=== PATIENT | female | born 1960 | race Caucasian/White ===

== ENCOUNTER 2017-05-30 08:24 | Day surgery (SDC) ==
[2017-05-30] MEDS ORDERED: DIPRIVAN 20 ML VIAL IVP ONE (10:54)
[2017-05-30] MEDS ORDERED: VERSED ONE (10:54)
[2017-05-30 12:03] VITALS: BP 138/71; TEMP 98.8
--- NOTE | 2017-05-31 09:50 | OP ---
INDICATIONS FOR PROCEDURE: 56-year-old female presents for screening colonoscopy exam. She incidentally has some constipation. MEDICATIONS: SEE ANESTHESIA NOTES. PROCEDURE: COLONOSCOPY, SNARE POLYPECTOMY, ENDOCLIP THERAPY. REPORT: The risks, benefits, alternatives and limitations were discussed in detail with the patient. Informed consent was obtained. After adequate sedation was achieved, a digital rectal exam revealed good tone, no masses. The colonoscope was introduced into the rectum and advanced under direct visual guidance to the cecum. The cecum was identified by the appendiceal orifice and IC valve. On the IC valve there is a small 5 mm slightly raised polyp that I removed by snare technique. I then noticed in the very proximal ascending colon there was a sessile 10 or 11 mm polyp. I removed this by snare technique. There is a couple drops of blood present thus I chose to close this polypectomy site given its larger size with Endoclip. This polyp tissue was retrieved. The smaller polyp was not retrieved. I then slowly withdrew the scope in a circumferential manner examining the mucosa quite carefully. I looked on the proximal and distal side of folds and flexures as best as possible. I was able to retroflex the scope in the right colon and left colon to increase visualization. I noted no other abnormalities throughout the entire length of the colon including on retroflex view of the anal canal. The prep was good. The withdrawal time was 20 minutes and 10 seconds. The patient tolerated the procedure well with stable vital signs and pulse oximetry throughout. IMPRESSION: 1. TWO (2) POLYPS REMOVED RECOMMENDATIONS: 1. High fiber diet. 2. For constipation, I suggest fiber supplements or adding Miralax. 3. Await colon polyp pathology, if everything is benign I recommend repeat colonoscopy examination again in 3 years given the larger size of the proximal colon polyp. 4. Office visit as needed. CC: DR. THONG HAINES
== END 2017-05-30 12:20 | disposition home or self-care (01) ==
LOC: SURG 08:24
PROVIDERS: ATTEND Internal Medicine Gastroenterology
DX: Z12.11 Encounter for screening for malignant neoplasm of colon (principal); D12.2 Benign neoplasm of ascending colon; K59.00 Constipation, unspecified

== ENCOUNTER 2018-01-24 06:52 | Outpatient (CLI) ==
[2018-01-24] MEDS ORDERED: ATROPINE SULFATE PFS ONE (06:57)
[2018-01-24] MEDS ORDERED: DOBUTAMINE 250 ML IV ONE (06:57)
--- NOTE | 2018-01-24 09:04 | ECHOSTRESS ---
Date of Exam: 01/24/18 Ordering Physician: DR. ERIN BENITO Reason for Echo: CHEST PAIN, DOBUTAMINE STRESS TEST--NO ISCHEMIA M-Mode Normal Adult Results LV Dimensions Normal Adult Results AoV Opening excursions >1.6 LVEDD-base- 3.5-5.8 Ao root dimensions 2.0-3.7 LVESD-base- 3.1-4.6 L. Atrium dimensions 1.9-3.8 Post. Wall thickness 0.8-1.1 IV septum (thickness) 0.7-1.2 Post. Wall excursion 0.72-1.3 Septal motion Systolic motion R. Ventricular cavity 1.5-2.0 LVEF 60% Paradoxical septal wall motion 2-D: NORMAL LEFT VENTRICULAR CONTRACTILITY--RESTING AND WITH DOBUTAMINE INFUSION M-MODE: MV: AV: TV: PV: CHAMBER SIZE: WALL MOTION: NORMAL LEFT VENTRICULAR CONTRACTILITY--RESTING AND WITH DOBUTAMINE INFUSION PERICARDIUM: INTERPRETATION: 1. NORMAL LEFT VENTRICULAR CONTRACTILITY--RESTING AND WITH DOBUTAMINE INFUSION MTDD
--- NOTE | 2018-01-24 09:25 | DOBSTECHO ---
Date of Test: 01/24/18 Ordering Physician: DR. ERIN BENITO Reason for Examination: CHEST PAIN, HYPERTENSION, [place] WITH STENT--2010 Current Medications: BUPROPION, ZOLOFT, XANAX, ZOPIDEM, LISINOPRIL, ATENOLOL, PLAVIX, LIPITOR, SOMA Height: 64" Weight: 224 LBS Target Heart Rate: 136/161 S-T Segment Stage Time HR BPM BP MMHG Rhythm +/- Elevation Depression Comments/ Symptoms Control Sitting 64 136/98 SR X NONE Dobutamine 250mg/D5W 5cmg/KG/mn 10cmg/KG/mn 3:00 77 154/80 SR X NONE 15cmg/KG/mn 2:00 95 SR X NONE 20cmg/KG/mn 2:00 108 152/78 SR X NONE 25cmg/KG/mn 2:00 118 SR X NONE 30cmg/KG/mn 1:32 130 164/68 SR X NONE 35cmg/KG/mn 40cmg/KG/mn Time: 3:00 HR B/P Time: 8:00 HR B/P Time: HR B/P Recovery 100 162/70 Recovery 76 138/62 Recovery Total Time: 10:32 Maximum Heart Rate Reached: 130 BPM 99% OXYGEN SATURATION ON ROOM AIR DURING DOBUTAMINE INFUSION Interpretation: 1. NO EVIDENCE OF ISCHEMIA BY ST-T WAVE CHANGES 2. NO CHEST PAIN OR DISCOMFORT 3. NORMAL LEFT VENTRICULAR CONTRACTILITY--RESTING AND WITH DOBUTAMINE INFUSION MTDD
== END 2018-01-24 06:53 | disposition home or self-care (01) ==
LOC: CAR 06:52
PROVIDERS: ATTEND Internal Medicine
DX: R07.9 Chest pain, unspecified (principal)
CPT/HCPCS: 93005; 93010

== ENCOUNTER 2018-04-13 09:38 | Outpatient (CLI) ==
--- NOTE | 2018-04-13 12:24 | US ---
EXAM: Ultrasound bilateral carotid duplex HISTORY: Dizziness COMPARISON: None TECHNIQUE: Sonographic and color Doppler evaluation of the carotids were performed. FINDINGS: The right carotid is patent in appearance with scattered mild to moderate atherosclerotic plaque visu alized. The right ICA peak systolic velocity measures 120 cm/sec which is normal. The ICA / CCA peak systolic velocity ratio is 2.1 and ICA end-diastolic velocity is 30 cm/sec. The left carotid is patent in appearance with scattered mild to moderate atherosclerotic plaque visua lized. The left ICA peak systolic velocity measures 100 cm/sec which is normal. The left ICA / CCA peak systolic velocity ratio is 1.6 and ICA end-diastolic velocity is 30 cm/sec. Vertebral arteries demonstrate antegrade flow bilaterally. IMPRESSION: Mild to moderate atherosclerotic disease by ultrasound with no elevated velocities or color Doppler a bnormality to suggest hemodynamically significant stenosis.
== END 2018-04-13 09:39 | disposition home or self-care (01) ==
LOC: RAD 09:38
PROVIDERS: ATTEND Internal Medicine
DX: R42 Dizziness and giddiness (principal)

== ENCOUNTER 2019-01-15 13:24 | Inpatient (IN) ==
--- NOTE | 2019-01-15 14:15 | ED.PDOC ---
General ED Provider: Dr. CRAIG MILLER Chief Complaint: Chest Pain Stated Complaint: High Epigastric pain , Recent Fall down 5 step injurying rt shoulder. Patient complains of upper abdominal pain and epigastric pain since last night. Patent stated pain had returned since this morning. Patient stated pain has made her nauseous. Patient stated Dr. Benito told her to come here because of her cardiac history. Patient stated she fell at home down 5 steps 2 days ago. Patient complains of hot flashes. Time Seen by Physician: 14:00 Mode of Arrival: Walk-In Information Source: Patient Exam Limitations: No limitations Primary Care Provider: ERIN BENITO Nursing and Triage Documentation Reviewed and Agree: Yes Does patient meet sepsis criteria?: No System Inflammatory Response Syndrome: Not Applicable Sepsis Protocol: For patient's 13 years and over: Temp is 96.8 and below OR 101 and greater Pulse >90 BPM Resp >20/minute Acutely Altered Mental Status Are patient's symptoms suggestive of a new infection, such as: -Pneumonia -Skin, Soft Tissue -Endocarditis -UTI -Bone, Joint Infection -Implantable Device -Acute Abdominal Infection -Wound Infection -Meningitis -Blood Stream Catheter Infection -Unknown Review of Systems - Review Of Systems Constitutional: Reports: No symptoms Eyes: Reports: No symptoms Ears, Nose, Mouth, Throat: Reports: No symptoms Respiratory: Reports: No symptoms Cardiac: Reports: No symptoms GI: Reports: No symptoms : Reports: No symptoms Musculoskeletal: Reports: No symptoms Skin: Reports: No symptoms Neurological: Reports: No symptoms Endocrine: Reports: No symptoms Hematologic/Lymphatic: Reports: No symptoms All Other Systems: Reviewed and Negative Past Medical History - Past Medical History Previously Healthy: No Endocrine: Reports: None Cardiovascular: Reports: CAD, Hypertension Respiratory: Reports: None Hematological: Reports: None Gastrointestinal: Reports: GERD Genitourinary: Reports: None Neuro/Psych: Reports: None Musculoskeletal: Reports: Back Pain Cancer: Reports: None Last Menstrual Period: several years - Surgical History General Surgical History: Reports: None - Family History Family History: Reports: None - Social History Smoking Status: Never smoker Hx Substance Use: No Alcohol Screening: None - Immunizations Tetanus Shot up to Date: Yes Physical Exam - Physical Exam Appearance: Ill-appearing, Obese Ill-appearing: Moderate Pain Distress: Moderate Eyes: ROSETTA, EOMI, Conjunctiva clear ENT: Ears normal Neck: Supple Respiratory: Airway patent Cardiovascular: RRR, Pulses normal, No rub, No murmur GI/: Soft, Tender (mid epigastrium-no guarding or rebound) Skin: Warm (large area of ecchymoses rt lat upper thoracic region and costal region -from her fall), Dry, Normal color Neurological: Sensation intact, Motor intact, Reflexes intact, Cranial nerves intact, Alert, Oriented Psychiatric: Affect appropriate, Mood appropriate Interpretation - Radiology Interpretation Radiology Interpretation By: Radiologist Exam Interpreted: Portable CXR (WNL), CT Scan (Gastroenteritia) Physician Notification - Case Discussed Physician Notified: Dr Benito- Will admit for continued IV fluids and pain control Time of Notification: 18:30 Critical Care Note - Critical Care Note Total Time (mins): 60 Course - Course Hematology/Chemistry: 01/15/19 14:21 01/15/19 14:21 Orders, Labs, Meds: Lab Review 01/15/19 01/15/19 01/15/19 14:21 14:21 14:21 WBC 9.02 RBC 4.45 Hgb 13.7 Hct 40.2 MCV 90.3 MCH 30.8 MCHC 34.1 RDW Coeff of Elizabeth 12.1 Plt Count 329 Immature Gran % (Auto) 0.2 Neut % (Auto) 61.8 Lymph % (Auto) 27.8 [place] % (Auto) 5.9 Eos % (Auto) 3.3 Baso % (Auto) 1.0 Immature Gran # (Auto) 0.0 Neut # (Auto) 5.6 Lymph # (Auto) 2.5 [place] # (Auto) 0.5 Eos # (Auto) 0.3 Baso # (Auto) 0.1 PT 9.8 INR 0.98 APTT 23.5 L Sodium 138.8 Potassium 3.55 Chloride 98.8 Carbon Dioxide 29.9 Anion Gap 13.65 BUN 11.7 Creatinine 0.81 Estimated GFR (MDRD) 72.00 BUN/Creatinine Ratio 14.44 Glucose 107.0 H Calcium 9.61 Magnesium Total Bilirubin 0.60 AST 33.1 ALT 19.2 Alkaline Phosphatase 85.3 Total Creatine Kinase 71.7 Troponin I < 0.012 NT-Pro-B Natriuret Pep Total Protein 8.12 Albumin 4.83 Globulin 3.29 Albumin/Globulin Ratio 1.46 Amylase Lipase 01/15/19 01/15/19 14:21 16:00 WBC RBC Hgb Hct MCV MCH MCHC RDW Coeff of Elizabeth Plt Count Immature Gran % (Auto) Neut % (Auto) Lymph % (Auto) [place] % (Auto) Eos % (Auto) Baso % (Auto) Immature Gran # (Auto) Neut # (Auto) Lymph # (Auto) [place] # (Auto) Eos # (Auto) Baso # (Auto) PT INR APTT Sodium Potassium Chloride Carbon Dioxide Anion Gap BUN Creatinine Estimated GFR (MDRD) BUN/Creatinine Ratio Glucose Calcium Magnesium 2.43 H Total Bilirubin AST ALT Alkaline Phosphatase Total Creatine Kinase Troponin I NT-Pro-B Natriuret Pep 157.000 H Total Protein Albumin Globulin Albumin/Globulin Ratio Amylase 126.9 H Lipase 375.3 H Orders Category Date Time Status ECHOCARDIOGRAM 2D-M MODE Routine CARDIO 01/15/19 18:31 Ordered EKG-(ED ONLY) Stat CARDIO 01/15/19 14:15 Completed EKG-(IP & OP ONLY) Routine CARDIO 01/15/19 18:32 Ordered ACTIVITY .BR with BRP CARE 01/15/19 18:31 Active INTAKE & OUTPUT Q8HR CARE 01/15/19 18:31 Active NPO REMINDER: IMAGING ONCE CARE 01/15/19 16:53 Active VITAL SIGNS Q4HR CARE 01/15/19 18:31 Active NOTHING BY MOUTH DIETARY 01/15/19 Dinner Ordered AMYLASE Stat LAB 01/15/19 16:00 Completed CBC W/ AUTO DIFF DAILY@0600 LAB 01/16/19 06:00 Ordered CBC W/ AUTO DIFF DAILY@0600 LAB 01/17/19 06:00 Ordered CBC W/ AUTO DIFF Stat LAB 01/15/19 14:21 Completed CMP [COMPREHENSIVE METABOLIC PANEL] Stat LAB 01/15/19 14:21 Completed COMPREHENSIVE METABOLIC PANEL DAILY@0600 LAB 01/16/19 06:00 Ordered COMPREHENSIVE METABOLIC PANEL DAILY@0600 LAB 01/17/19 06:00 Ordered CPK [CREATINE KINASE] Stat LAB 01/15/19 14:21 Completed LIPASE Stat LAB 01/15/19 16:00 Completed MAGNESIUM Stat LAB 01/15/19 16:00 Completed NT-PROBNP Stat LAB 01/15/19 14:21 Completed PARTIAL THROMBOPLASTIN TIME Stat LAB 01/15/19 14:21 Completed PT WITH INR Stat LAB 01/15/19 14:21 Completed TROPONIN I Q8H LAB 01/16/19 00:45 Ordered TROPONIN I Q8H LAB 01/16/19 08:45 Ordered TROPONIN I Stat LAB 01/15/19 14:21 Completed 0.9 % Sodium Chloride [Saline Flush] MEDS 01/15/19 14:15 Active 1 syr IVF PRN PRN Bupropion HCl [Bupropion Xl] MEDS 01/16/19 09:00 Ordered 300 mg PO DAILY Clopidogrel Bisulfate [Plavix] MEDS 01/16/19 09:00 Ordered 75 mg PO DAILY Famotidine Inj [Pepcid] MEDS 01/15/19 15:31 Discontinued 20 mg IVP ONCE STA Ondansetron HCl/Pf [Zofran 4 mg/2 ml] MEDS 01/15/19 15:31 Discontinued 4 mg IVP ONCE STA Pantoprazole Sodium [Protonix IV] MEDS 01/16/19 09:00 Ordered 40 mg IVP DAILY Pantoprazole Sodium [Protonix IV] MEDS 01/15/19 16:58 Discontinued 40 mg IVP ONCE STA Promethazine HCl [Phenergan 25 mg/ml Vial] 25 mg MEDS 01/15/19 18:31 Ordered 0.9 % Sodium Chloride [Sodium Chloride] 100 ml IV Q6H Sertraline HCl [Zoloft] MEDS 01/16/19 09:00 Ordered 100 mg PO DAILY Sodium Chloride 0.9% [Sodium Chloride] 1,000 ml MEDS 01/15/19 16:18 Discontinued IV BOLUS Zolpidem Tartrate [Zolpidem Tartrate ER] MEDS 01/15/19 21:00 Ordered 12.5 mg PO DAILY RESUSCITATION STATUS Routine OTHERS 01/15/19 18:31 Ordered CHEST, 1V AP ONLY Stat RADS 01/15/19 15:[address] ABDOMEN/PELVIS W/WO CONTRAS Stat RADS 01/15/19 16:53 Completed Medications Generic Name Dose Route Start Last Admin Trade Name Freq PRN Reason Stop Dose Admin Clopidogrel Bisulfate 75 mg 01/16/19 09:00 Plavix PO DAILY HANSA Promethazine HCl 25 mg/ Sodium 101 mls @ 200 mls/hr 01/15/19 18:31 Chloride IV Q6H PRN Nausea / Vomiting Non-Formulary Medication 100 mg 01/16/19 09:00 Sertraline Hcl [Zoloft] PO DAILY HANSA Non-Formulary Medication 300 mg 01/16/19 09:00 Bupropion Hcl [Bupropion Xl] PO DAILY HANSA Non-Formulary Medication 12.5 mg 01/15/19 21:00 Zolpidem Tartrate [Zolpidem Tartrate Er] PO DAILY HANSA Pantoprazole Sodium 40 mg 01/16/19 09:00 Protonix Iv IVP DAILY HANSA Sodium Chloride 1 syr 01/15/19 14:15 01/15/19 16:10 Saline Flush IVF 1 syr PRN PRN Administration To flush IV Discontinued Medications Generic Name Dose Route Start Last Admin Trade Name Freq PRN Reason Stop Dose Admin Famotidine 20 mg 01/15/19 15:31 01/15/19 16:09 Pepcid IVP 01/15/19 15:32 20 mg ONCE STA Administration Sodium Chloride 1,000 mls @ 500 mls/hr 01/15/19 16:18 01/15/19 16:24 Sodium Chloride IV 01/15/19 18:17 500 mls/hr BOLUS STA Administration Ondansetron HCl 4 mg 01/15/19 15:31 01/15/19 16:09 Zofran 4 Mg/2 Ml IVP 01/15/19 15:32 4 mg ONCE STA Administration Pantoprazole Sodium 40 mg 01/15/19 16:58 01/15/19 17:40 Protonix Iv IVP 01/15/19 16:59 40 mg ONCE STA Administration Vital Signs: Temp Pulse Resp BP Pulse Ox 01/15/19 13:25 97.9 F 75 20 153/89 H 99 BAYRON Risk Score BAYRON Risk Score: Risk Score Odds of by 30D 0 0.1 (0.1-0.2) 1 0.3 (0.2-0.3) 2 0.4 (0.3-0.5) 3 0.7 (0.6-0.9) 4 1.2 (1.0-1.5) 5 2.2 (1.9-2.6) 6 3.0 (2.5-3.6) 7 4.8 (3.8-6.1) Departure - Departure Time of Disposition: 18:50 Disposition: ADMITTED INPATIENT Discharge Problem: Gastroenteritis, Chronic constipation, Epigastric abdominal pain Instructions: Constipation (ED), Gastroesophageal Reflux Disease (ED) Condition: Good Pt referred to PMD for follow-up: Yes (Dr Benito prefers admit) IPMP verified?: No Additional Instructions: Reviewed lab and discussed tx Allergies/Adverse Reactions: Allergies No Known Allergies Allergy (Unverified 05/29/17 14:08) Home Medications: Ambulatory Orders Acetaminophen with Codeine [Tylenol with Codeine #4 Tablet] 1 mg PO BID Bupropion HCl [Bupropion Xl] 300 mg PO DAILY 05/29/17 Clopidogrel Bisulfate [Plavix] 75 mg PO DAILY 05/29/17 Hydrochlorothiazide 12.5 mg PO DAILY 05/29/17 Zolpidem Tartrate [Zolpidem Tartrate ER] 12.5 mg PO DAILY 05/29/17 Carisoprodol [Soma] 325 mg PO BID 01/15/19 Sertraline HCl [Zoloft] 100 mg PO DAILY 01/15/19 Terbinafine HCl [Lamisil] 250 mg PO DAILY 01/15/19 Disposition Discussed With: Patient, Family
[2019-01-15] MEDS ORDERED: ZOFRAN 4 MG/2 ML IVP STA (15:31)
[2019-01-15] MEDS ORDERED: PEPCID IVP STA (15:31)
--- NOTE | 2019-01-15 15:58 | DI ---
EXAM: Chest one view HISTORY: Fall, chest pain COMPARISON: 07/09/2013 TECHNIQUE: Single view of the chest was performed FINDINGS: The lungs are clear. There is no pleural effusion or pneumothorax. The heart is normal i n size. The mediastinal contour is normal. There are no acute abnormalities of the bones. IMPRESSION: No acute cardiopulmonary process.
[2019-01-15] MEDS ORDERED: SODIUM CHLORIDE 1,000 ML IV STA (16:18)
[2019-01-15] MEDS ORDERED: PROTONIX IV IVP STA (16:58)
[2019-01-15] MEDS ORDERED: PHENERGAN 25 MG/ML VIAL 25 MG in SODIUM CHLORIDE 100 ML IV PRN (18:31)
--- NOTE | 2019-01-15 18:42 | CT ---
EXAM: CT abdomen pelvis with and without contrast HISTORY: Epigastric pain COMPARISON: None. FINDINGS: Contiguous axial images obtained through the abdomen pelvis both before and after uneventf ul administration intravenous contrast utilizing 3-mm collimation. Sagittal and coronal reconstructi ons were imaged and reviewed.. The visualized lung bases are clear. The gallbladder is fluid filled without lithiasis. The liver, pancreas, spleen and adrenal glands have normal enhanced CT appearance . Atherosclerotic changes are seen involving the aorta without aneurysm formation.. There are mildly prominent air and fluid filled loops of small bowel within the abdomen and upper pelvis which may be related to ileus versus gastroenteritis. The kidneys excrete contrast in a normal fashion bilateral ly.. Scattered fluid is noted throughout the colon which may be related to diarrhea. There is a sma ll fat-containing umbilical hernia. The bladder is is small volumed without obvious abnormality.. IMPRESSION: Prominent small bowel which may be related to ileus versus gastroenteritis. Fluid filled colon. No free fluid or inflammatory change
[2019-01-15] MEDS ORDERED: ZOLPIDEM TARTRATE 12.5 MG PO SCH (21:00)
[2019-01-15 21:18] VITALS: BMI 34.6
[2019-01-15] MEDS ORDERED: AMBIEN ONE (21:47)
[2019-01-15] MEDS ORDERED: NON-FORMULARY MEDICATION (Alprazolam [Alprazolam] 1 MG) PO PRN (22:40)
[2019-01-15] MEDS ORDERED: ZOFRAN 4 MG/2 ML IVP PRN (22:43)
[2019-01-15] MEDS ORDERED: SODIUM CHLORIDE 1,000 ML IV SCH (23:00)
[2019-01-16] MEDS ORDERED: XANAX ONE (01:22)
[2019-01-16] MEDS ORDERED: DEXTROSE 5%-1/2NS IV SOLUTION 1,000 ML IV SCH ×2 (01:30→08:30)
[2019-01-16] MEDS ORDERED: TORADOL IVP STA ×2 (06:19→10:45)
[2019-01-16] MEDS: PLAVIX PO SCH (08:22)
[2019-01-16] MEDS: ZOLOFT PO SCH (08:22)
[2019-01-16] MEDS: WELLBUTRIN XL PO SCH (08:22)
[2019-01-16] MEDS ORDERED: NON-FORMULARY MEDICATION (Sertraline Hcl [Zoloft] 100 MG) PO SCH (09:00)
[2019-01-16] MEDS ORDERED: PROTONIX IV IVP SCH (09:00)
[2019-01-16] MEDS ORDERED: NON-FORMULARY MEDICATION (Bupropion Hcl [Bupropion Xl] 300 MG) PO SCH (09:00)
--- NOTE | 2019-01-16 09:43 | PCM.PROG ---
Attending Provider: ATTENDING PROVIDER: Dr. ERIN BENITO DATE OF SERVICE: 01/16/19 SUBJECTIVE: This 58 year old WHITE/ F was hospitalized 01/15/19 with epigastric pain and tenderness. The patient underwent CT of chest, CT of abdomen and pelvis, chest x-ray, CT of abdomen and pelvis, EKG and cardiac markers. Conclusion was the patient has gastroenteritis, mild elevation of amylase and lipase secondary to enteritis. The patient had possible of ileus which could be related to enteritis and is feeling a lot better. REVIEW OF SYSTEMS: CONSTITUTIONAL: No night sweats. No fatigue, malaise, lethargy. No fever or chills. HEENT: Eyes: No visual changes. No eye pain. No eye discharge. ENT: No runny nose. No epistaxis. No sinus pain. No odynophagia. No congestion. RESPIRATORY: No cough, no congestion. No hemoptysis. No shortness of breath. CARDIOVASCULAR: No angina symptoms. No CHF symptoms. No atypical chest pain for CAD. No palpitations. No orthopnea.. GASTROINTESTINAL: Epigastric tenderness. No nausea or vomiting. No diarrhea or constipation. No hematemesis. No hematochezia. GENITOURINARY: No urgency. No frequency. No dysuria. No hematuria. No obstructive symptoms. No discharge. No pain. No significant abnormal bleeding. MUSCULOSKELETAL: No musculoskeletal pain; no joint swelling. NEUROLOGICAL: Awake, alert, oriented to time, place and person. No headache. No neck pain. No syncope. No seizures. No dizziness. PSYCHIATRIC: Not anxious. No depression. No suicidal thoughts. No homicidal thoughts. SKIN: No rash. No lesions. No wounds. ENDOCRINE: No unexplained weight loss. No weight gain. HEMATOLOGIC/LYMPHATIC: No anemia. No purpura. No petechiae. No prolonged or excessive bleeding. No palpable lymph nodes. PHYSICAL EXAMINATION: GENERAL: The patient is awake, alert and oriented, lying/sitting in bed in no distress. VITAL SIGNS: Temperature 98.2 F, Pulse 72, Respiratory Rate 18, BP 114/73, Pulse Ox 96% HEENT: Head normocephalic, atraumatic. Eyes: Extraocular muscles are intact. Pupils are equal, round and reactive to light and accommodation. Ears: No lesions. Nose appeared normal. Throat: No exudate or erythema. NECK: Supple. No JVD, no carotid bruit. No lymphadenopathy or thyromegaly. LUNGS: Clear to auscultation. Percussion note normal. Chest symmetrical. HEART: S1, S2, no S3. No murmurs. No cyanosis or clubbing. No ascites. Pulses: Dorsalis pedis and posterior tibial pulses +1 to +2 both sides. ABDOMEN: Soft. Tenderness in epigastric area. Bowel sounds active. No CVA tenderness. No mass felt. EXTREMITIES: No edema. Full range of motion of all extremities, equal. NEUROLOGIC: No focal deficit. Cranial nerves II through XII are grossly intact. No headache, no double vision or headache. SKIN: Warm and dry. Intact. Turgor-normal. LYMPHATIC: No palpable lymph nodes/no lymphedema. MUSCULOSKELETAL: Normal joints with no swelling. Muscle tone is normal. LAB REVIEW: 01/16/19 05:30 01/16/19 05:30 01/16/19 05:30: Troponin I < 0.012 01/16/19 05:30: Sodium 139.2, Potassium 3.35 L, Chloride 102.1, Carbon Dioxide 29.1, Anion Gap 11.35, BUN 10.3, Creatinine 0.74, Estimated GFR (MDRD) 80.00, BUN/Creatinine Ratio 13.91, Glucose 105.0, Calcium 8.85, Total Bilirubin 0.64, AST 28.7, ALT 17.2, Alkaline Phosphatase 77.9, Total Protein 6.88, Albumin 4.10 , Globulin 2.78, Albumin/Globulin Ratio 1.47 01/16/19 05:30: WBC 9.74, RBC 4.13 L, Hgb 12.6, Hct 37.3, MCV 90.3, MCH 30.5, MCHC 33.8, RDW Coeff of Elizabeth 12.2, Plt Count 316, Immature Gran % (Auto) 0.3, Neut % (Auto) 58.6, Lymph % (Auto) 31.7, [place] % (Auto) 6.5, Eos % (Auto) 2.3, Baso % (Auto) 0.6, Immature Gran # (Auto) 0.0, Neut # (Auto) 5.7, Lymph # (Auto ) 3.1, [place] # (Auto) 0.6, Eos # (Auto) 0.2, Baso # (Auto) 0.1 01/16/19 00:45: Troponin I < 0.012 01/15/19 16:00: Magnesium 2.43 H, Amylase 126.9 H, Lipase 375.3 H 01/15/19 14:21: NT-Pro-B Natriuret Pep 157.000 H 01/15/19 14:21: PT 9.8, INR 0.98, APTT 23.5 L 01/15/19 14:21: Sodium 138.8, Potassium 3.55, Chloride 98.8, Carbon Dioxide 29.9 , Anion Gap 13.65, BUN 11.7, Creatinine 0.81, Estimated GFR (MDRD) 72.00, BUN/ Creatinine Ratio 14.44, Glucose 107.0 H, Calcium 9.61, Total Bilirubin 0.60, AST 33.1, ALT 19.2, Alkaline Phosphatase 85.3, Total Creatine Kinase 71.7, Troponin I < 0.012, Total Protein 8.12, Albumin 4.83, Globulin 3.29, Albumin/ Globulin Ratio 1.46 01/15/19 14:21: WBC 9.02, RBC 4.45, Hgb 13.7, Hct 40.2, MCV 90.3, MCH 30.8, MCHC 34.1, RDW Coeff of Elizabeth 12.1, Plt Count 329, Immature Gran % (Auto) 0.2, Neut % (Auto) 61.8, Lymph % (Auto) 27.8, [place] % (Auto) 5.9, Eos % (Auto) 3.3, Baso % (Auto) 1.0, Immature Gran # (Auto) 0.0, Neut # (Auto) 5.6, Lymph # (Auto ) 2.5, [place] # (Auto) 0.5, Eos # (Auto) 0.3, Baso # (Auto) 0.1 ASSESSMENT: 1. Acute gastroenteritis. 2. Dehydration. 3. Cardiovascular status is stable. 4. The patient had a fall four to five days ago and hurt her right rib cage and right leg with bruising. The patient declined rib cage x-rays in the Emergency Department. PLAN: 1. Will begin soft diet. 2. Continue IV fluids at 70 cc/hr. 3. Stress test will be done as an outpatient. 4. The patient is to be up and about. Plan and coordination of the patient's care discussed in the presence of Emt Paramedic and nurse. CONDITION: Stable SCRIBED BY: YOGESH SHAFFER Web Site Designer scribed while in presence of service performed by Dr. ERIN BENITO on 01/16/19 ([id number])
[2019-01-16] MEDS ORDERED: [UNRECOGNIZED DRUG - OTHER] PO SCH (10:00)
[2019-01-16] MEDS ORDERED: CODEINE PO SCH (10:00)
[2019-01-16] MEDS ORDERED: ACETAMINOPHEN PO SCH (10:00)
[2019-01-16] MEDS: SOMA PO SCH ×2 (13:38→21:33)
[2019-01-16] MEDS: [UNRECOGNIZED DRUG - OTHER] PO SCH ×2 (13:38→21:33)
[2019-01-16] MEDS: XANAX PO PRN (17:40)
[2019-01-16] MEDS ORDERED: SOMA PO SCH (21:00)
[2019-01-17] MEDS: XANAX PO PRN (00:59)
[2019-01-17 04:49] VITALS: BP 105/60; TEMP 97.8
[2019-01-17] MEDS ORDERED: PROTONIX PO SCH (06:30)
[2019-01-17] MEDS: [UNRECOGNIZED DRUG - OTHER] PO SCH (08:47)
[2019-01-17] MEDS: PLAVIX PO SCH (08:48)
[2019-01-17] MEDS: WELLBUTRIN XL PO SCH (08:48)
[2019-01-17] MEDS: SOMA PO SCH (08:48)
[2019-01-17] MEDS: ZOLOFT PO SCH (08:48)
--- NOTE | 2019-01-17 11:48 | CM.DICTOOL ---
ADMISSION: 01/15/19 19:37 DISCHARGE: JANUARY 17, 2019 DATE OF SERVICE: 01/17/19 FINAL DIAGNOSIS ACUTE GASTROENTERITIS/ILEUS CHRONIC CONSTIPATION DEDHYDRATION S/P FALL HYPERTENSION HIGH LIPIDS STENT APPLICATION (CARDIAC) APPENDECTOMY BACK SURGERY COLONOSCOPY, POLYPS REMOVED DR. MAC (2016) ACUTE GASTROENTERITIS/ILEUS CONSTIPATION DEHYDRATION S/P FALL HYPERTENSION HIGH LIPIDS STENT APPLICATION (CARDIAC) APPENDECTOMY BACK SURGERY COLONOSCOPY, POLYPS REMOVED DR. MAC (2016) SESTAMIBI STRESS ECHO, NORMAL RESULTS (2013) DOBUTAMINE STRESS, NO EVIDENCE OF ISCHEMIA (01/2018) LAST VITALS Temp Pulse Resp BP Pulse Ox 97.8 F 65 18 105/60 98 01/17/19 04:48 01/17/19 04:48 01/17/19 04:48 01/17/19 04:48 01/17/19 04:48 TAKE THESE MEDICATIONS AT HOME Alprazolam (Xanax) 1 mg PO BID PRN PRN Reason: ANXIETY Last Admin: 01/17/19 00:59 Dose: 1 mg Bupropion HCl (Wellbutrin Xl) 300 mg PO DAILY [facility] Last Admin: 01/17/19 08:48 Dose: 300 mg Carisoprodol (Soma) 350 mg PO BID [facility] Last Admin: 01/17/19 08:48 Dose: 350 mg Clopidogrel Bisulfate (Plavix) 75 mg PO DAILY [facility] Last Admin: 01/17/19 08:48 Dose: 75 mg Non-Formulary Medication (Acetaminophen With Codeine [Tylenol With Codeine #4 Tablet]) 1 tab PO BID [facility] Last Admin: 01/17/19 08:47 Dose: 1 tab Pantoprazole Sodium (Protonix) 40 mg PO QDAC [facility] Last Admin: 01/17/19 05:42 Dose: 40 mg Sertraline HCl (Zoloft) 100 mg PO DAILY [facility] Last Admin: 01/17/19 08:48 Dose: 100 mg Hydrochlorothiazide 12.5 mg PO [facility] DAILY Last Admin: Terbinafine HCL (LAMISIL) 250 MG PO DAILY [facility] Last Admin: ALLERGIES No Known Allergies Allergy (Unverified 05/29/17 14:08) DISCONTINUED MEDICATIONS NEW PRESCRIPTIONS: PROTONIX 40 MG DAILY MIRALAX OTC 1 CAPFUL DAILY FOR CONSTIPATION SMOKING: NOT APPLICABLE DISEASE SPECIFIC EDUCATION: CONSTIPATION PRESCRIPTION OUTPATIENT TESTING APPOINTMENT LAB REVIEW: 01/17/19 04:20 01/17/19 04:20 01/17/19 04:20: Amylase 72.4 D, Lipase 62.8 01/17/19 04:20: Sodium 137.7, Potassium 3.75, Chloride 101.2, Carbon Dioxide 29.6, Anion Gap 10.65, BUN 15.5, Creatinine 0.86, Estimated GFR (MDRD) 67.00, BUN/Creatinine Ratio 18.02, Glucose 94.5, Calcium 8.89, Total Bilirubin 0.58, AST 26.1, ALT 18.6, Alkaline Phosphatase 67.0, Total Protein 6.34, Albumin 3.78 , Globulin 2.56, Albumin/Globulin Ratio 1.47 01/17/19 04:20: WBC 8.56, RBC 3.86 L, Hgb 11.6 L, Hct 35.2 L, MCV 91.2, MCH 30.1 , MCHC 33.0, RDW Coeff of Elizabeth 12.2, Plt Count 267, Immature Gran % (Auto) 0.1, Neut % (Auto) 39.5, Lymph % (Auto) 48.2, Sullivan % (Auto) 6.7, Eos % (Auto) 4.7, Baso % (Auto) 0.8, Immature Gran # (Auto) 0.0, Neut # (Auto) 3.4, Lymph # (Auto ) 4.1 H, Sullivan # (Auto) 0.6, Eos # (Auto) 0.4, Baso # (Auto) 0.1 PLAN: DISCHARGE: HOME LIVES ALONE DIET: RESUME TOLERATED ACTIVITY: RESUME TOLERATED, USES CANE (HAS) CONTINUE MEDICATIONS LISTED ON NURSING DISCHARGE INFORMATION SHEET AN APPOINTMENT IS SCHEDULED WITH DR. BENITO/RHETT WINN APRN ON January AT 1:15 PM (SCHEDULED PRIOR TO ADMISSION) CODE STATUS: FULL CODE AN OUTPATIENT DOBUTAMINE STRESS ECHO IS SCHEDULED FOR FEBRUARY 08, 2019 AT 6:30 AM MS. PAINTING IS ALERT AND ORIENTED X 3. SHE IS AGREEABLE TO PLANS FOR DISCHARGE HOME TODAY. SHE DENIES ABDOMINAL, EPIGASTRIC PAIN, OR NAUSEA. SHE IS TOLERATING A SOFT DIET WITH INTAKES OF 50-100%. MS. PAINTING IS INDEPENDENT WITH ACTIVITIES OF DAILY LIVING. SHE IS AMBULATORY TO THE BATHROOM, IN THE ROOM AND HALLWAY WITH USE OF A STANDARD WALKING CANE. SHE REPORTS CHRONIC BACK PAIN, BUT TAKES TYLENOL#4 AND SOMA WITH RELIEF. SHE REPORTS HER LAST BM WAS ON THE DAY OF ADMISSION; January. SHE REPORTS PROBLEMS WITH CONSTIPATION, BUT STATES SHE WILL USUALLY WAIT 1 WEEK BEFORE TRYING TO REMEDY WITH OTC LAXATIVE. SHE IS ENCOURAGED TO TRY MIRALAX DAILY RECOMMENDED BY DR. MAC WHEN SHE HAD HER COLONOSCOPY IN 2017. SKIN IS INTACT, BUT SCATTERED AREAS OF ECCHYMOSIS ARE NOTED TO THE UPPER EXTREMITIES, LOWER EXTREMITIES, RIGHT FLANK AND BUTTOCK FROM A FALL PRIOR TO HER ADMISSION. MD RHETT HANSON, [employer]TI[employer]ER
--- NOTE | 2019-01-18 09:12 | ECHO2D ---
Date of Exam: 01/17/19 Ordering Physician: DR. ERIN BENITO Room #: [id number] Reason for Echo: CHEST PAIN, ELEVATED BNP, CAD WITH STENT M-Mode Normal Adult Results LV Dimensions Normal Adult Results AoV Opening excursions >1.6 >1.6 LVEDD-base- 3.5-5.8 4.2 Ao root dimensions 2.0-3.7 3.4 LVESD-base- 3.1-4.6 L. Atrium dimensions 1.9-3.8 4.5 Post. Wall thickness 0.8-1.1 1.2 IV septum (thickness) 0.7-1.2 1.3 Post. Wall excursion 0.72-1.3 NORMAL Septal motion NORMAL Systolic motion R. Ventricular cavity 1.5-2.0 NORMAL LVEF 60% 69% Paradoxical septal wall motion NORMAL 2-D : 2-D M Mode Echocardiogram was performed using apical four chamber and left parasternal long and short axis views. Mitral, tricuspid and aortic valves appear to be normal. Contractility of the left ventricle seems to be normal, so is the cavity size. ENLARGED LEFT ATRIAL CAVITY. Aortic roots appear to be normal. There is no pericardial effusion. There is no thrombus noted in the left ventricular or left aortic cavity. No mitral valve prolapse noted. M-MODE: MV: NORMAL AV: NORMAL TV: NORMAL PV: CHAMBER SIZE: ENLARGED LEFT ATRIAL CAVITY WALL MOTION: NORMAL PERICARDIUM: NORMAL INTERPRETATION: 1. LEFT VENTRICULAR HYPERTROPHY WITH ENLARGED LEFT ATRIAL CAVITY 2. NORMAL LEFT VENTRICULAR CONTRACTILITY 3. NORMAL VALVES MTDD
--- NOTE | 2019-01-22 14:45 | DS ---
DATE OF SERVICE: 01/17/19 FINAL DIAGNOSIS: 1. ACUTE GASTROENTERITIS/ILEUS 2. CHRONIC CONSTIPATION 3. DEHYDRATION 4. S/P FALL 5. HYPERTENSION 6. HIGH LIPIDS 7. STENT APPLICATION (CARDIAC) 8. APPENDECTOMY 9. BACK SURGERY 10. COLONOSCOPY, POLYPS REMOVED DR. MAC (2016) 11. ACUTE GASTROENTERITIS 12. CONSTIPATION 13. DEHYDRATION 14. S/P FALL 15. HYPERTENSION 16. HIGH LIPIDS 17. STENT APPLICATION (CARDIAC) 18. APPENDECTOMY 19. BACK SURGERY 20. COLONOSCOPY, POLYPS REMOVED DR. MAC (2016) Sestamibi Stress Echo, normal results (2013) Dobutamine Stress, no evidence of ischemia (01/2018) LAST VITALS: Temperature 97.8 on 01/17/19 @ 0:48; pulse 65, respirtory rate 18, BP 105/60, pulse ox 98. DISCHARGE INSTRUCTIONS: 1. Discharge home, lives alone. 2. An outpatient Dobutamine Stress Echo is scheduled for February 08, 2019 at 6: 30 a.m. 3. Followup appointment is scheduled with Dr. Coleman/Heaven Rankin APRN on January 25 at 1:15 p.m. (scheduled prior to admission). MEDICATIONS AT DISCHARGE: Alprazolam 1 mg p.o. b.i.d. p.r.n. Buproprion 300 mg p.o. daily HANSA Carisoprodol 350 mg p.o. b.i.d. [facility]ANSA Clopidogrel 75 mg p.o. daily [facility] Pantoprazole 40 mg p.o. q.d a.c. HANSA Sertraline 100 mg p.o. daily [facility] Hydrochlorothiazide 12.5 mg p.o. HANSA daily Terbinafine 250 mg p.o. daily [facility] NEW PRESCRIPTIONS: Protonix 40 mg daily Miralax OTC one capful daily for constipation DIET INSTRUCTIONS: Resume as tolerated. ACTIVITY: Resume as tolerated, uses cane (HAS) SMOKING: N/A DISEASE SPECIFIC EDUCATION: Constipation Prescription Outpatient testing Appointment HOSPITAL COURSE: 58-year-old white female hospitalized with epigastric pain with diarrhea and nausea. The patient had acute gastroenteritis. The patient had borderline elevation of amylase and lipase from acute gastroenteritis. She had an ileus because of it. The patient's condition with conservative management with Zofran , GI cocktail, Protonix resolved. She has been taking Aspirin. She is strongly advised to quit aspirin, not to take nonsteroidal antiinflammatory. She has been put on Protonix at the time of discharge. Cardiovascular status was stable. Her EKG was normal with no cardiac markers negative. She had an echo done which showed normal LV contractility, enlarged left atrial cavity. The valves are normal. The patient will undergo chemical stress test that is Dobutamine stress test at a later date. At the present time she declined. She is up and about, eating well. Bowel movements are normal. She is advised not to abuse laxatives. LABS: Hemoglobin 12.6, hematocrit 37, WBC 9,700, normal differential. Creatinine 0.7, BUN 10. Condition at time of discharge is stable. TIME SPENT: More than 60 minutes. CARMENZAD
--- NOTE | 2019-01-22 14:47 | PN ---
BILLING 01/15/19 ADMISSION DAY LEVEL 5 01/16/19 INTERMEDIATE 01/17/19 DISCHARGE MTDD
--- NOTE | 2019-04-04 11:14 | HP ---
DATE OF SERVICE: 01/15/19 HISTORY OF PRESENT ILLNESS: 58-year-old white female who presented to the emergency room complaining of acute abdominal pain and weakness. PAST MEDICAL HISTORY: Includes chronic constipation History of falls Hypertension Severe dyslipidemia Coronary artery disease with stent Noncompliance with diet, lifestyle and medications PAST SURGICAL HISTORY: Stent placement Appendectomy Back surgery Colonoscopy in 2017 History of normal Dobutamine stress January 2018 REVIEW OF SYSTEMS: CONSTITUTIONAL: No night sweats. No fatigue, malaise, lethargy. No fever or chills. HEENT: Eyes: No visual changes. No eye pain. No eye discharge. ENT: No runny nose. No epistaxis. No sinus pain. No sore throat. No odynophagia. No ear pain. No congestion. RESPIRATORY: No cough, no congestion. No hemoptysis. No shortness of breath. CARDIOVASCULAR: No angina symptoms. No CHF symptoms. No atypical chest pain for CAD. No palpitations. No PND. No orthopnea. GASTROINTESTINAL: Positive for epigastric pain and nausea. No vomiting. No diarrhea or constipation. No hematemesis. No hematochezia. GENITOURINARY: No urgency. No frequency. No dysuria. No hematuria. No obstructive symptoms. No discharge. No pain. No significant abnormal bleeding. MUSCULOSKELETAL: Positive for right shoulder pain. NEUROLOGICAL: No headache. No neck pain. No syncope. No seizures. No dizziness. PSYCHIATRIC: Not anxious. No depression. No suicidal thoughts. No homicidal thoughts. SKIN: No rash. No lesions. No wounds. ENDOCRINE: No unexplained weight loss. No weight gain. HEMATOLOGIC/LYMPHATIC: No anemia. No purpura. No petechiae. No prolonged or excessive bleeding. No palpable lymph nodes. PERSONAL/FAMILY/SOCIAL HISTORY: She is . She lives alone. Denies any alcohol or ilicit drug use. She is a nonsmoker. MEDICATIONS: (HOME) Plavix 75 mg p.o. daily Hydrochlorothiazide 12.5 mg p.o. daily Buproprion XL 300 mg p.o. daily Lamisil 250 mg p.o. daily Zoloft 100 mg p.o. daily Alprazolam 1 mg p.o. b.i.d. p.r.n. Acetaminophen with Codeine one tab b.i.d. Carisoprodol 350 mg p.o. b.i.d. ALLERGIES: NKDA PHYSICAL EXAMINATION: VITAL SIGNS: Temperature 97.9, heart rate 75, respiratory rate 20, blood pressure 153/89, pulse ox 99%. HEENT: Head normocephalic, atraumatic. Eyes: Extraocular muscles are intact. Pupils are equal, round and reactive to light and accommodation. Ears: No lesions. Nose appeared normal. Throat: No exudate or erythema. NECK: Supple. No JVD, no carotid bruit. No lymphadenopathy or thyromegaly. LUNGS: Diminished breath sounds. Clear to auscultation. Percussion note normal. Chest symmetrical. HEART: Regular heart rate. S1, S2, no S3. No murmurs. No cyanosis or clubbing. No ascites. Pulses: Dorsalis pedis and posterior tibial pulses +1 to +2 bilaterally. ABDOMEN: Soft. Slight epigastric tenderness. Bowel sounds active. No CVA tenderness. No mass felt. EXTREMITIES: No edema. Full range of motion of all extremities, equal. NEUROLOGIC: No focal deficit. Cranial nerves II through XII are grossly intact. No headache, no double vision or headache. SKIN: Not dry. Intact. Turgor - normal. LYMPHATIC: No palpable lymph nodes/no lymphedema. MUSCULOSKELETAL: Normal joints with no swelling. Muscle tone is normal. LABS: White count 9.02, hemoglobin 13.7, hematocrit 40, platelets 329. Sodium 138, potassium 3.5, BUN 11, creatinine 0.8, glucose 107. AST 33, ALT 19, Alkaline phosphatase 85, total CK 71. Total protein 8.1, albumin 4.83. Amylase 126, lipase 375, BNP 157. Chest x-ray shows no acute process. Cardiac enzymes were negative. CT scan of the abdomen shows prominent small bowel which may represent ileus vs gastroenteritis, fluid filled colon, no free fluid or inflammatory change. ASSESSMENT: 1. ACUTE ABDOMINAL PAIN 2. DEHYDRATION 3. STATUS POST FALL PLAN: 1. Admit. 2. Routine telemetry orders. 3. CBC, CMP daily. 4. Normal Saline IV at 75cc/hr. 5. Continue home medications. 6. Start Protonix 40 mg p.o. b.i.d. 7. Zofran 4 mg IV q.6hr p.r.n. for nausea. 8. Continue home medications. 9. Greene diet. 10. Cardiac enzymes. 11. Toradol 30 mg IV q.8hr p.r.n. for pain. 12. Will follow closely. TIME SPENT: More than 70 minutes. MTDD
== END 2019-01-17 13:06 | disposition home or self-care (01) | DRG 392 ==
LOC: ED 13:24 → MEDSURG B 19:37
PROVIDERS: ADMIT Internal Medicine; ATTEND Internal Medicine
DX: K52.9 Noninfective gastroenteritis and colitis, unspecified; S49.91XA Unspecified injury of right shoulder and upper arm, initial encounter; E86.0 Dehydration; E78.5 Hyperlipidemia, unspecified; I10 Essential (primary) hypertension; R10.13 Epigastric pain; K59.09 Other constipation; R11.0 Nausea